=== PATIENT | male | born 2000 | race Caucasian/White ===

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

== ENCOUNTER 2022-04-27 08:40 | Emergency (ER) | payer SELFPAY ==
[2022-04-27] MEDS ORDERED: Sulfamethoxazole/Trimethoprim 800-160 MG Tab PO ONE (10:55)
[2022-04-27] MEDS ORDERED: Acetaminophen 325 MG Tab PO ONE (10:55)
[2022-04-27] MEDS ORDERED: Cephalexin 500 MG Cap PO ONE (10:55)
[2022-04-27] MEDS ORDERED: Lidocaine 1% with EPINEPHrine 1:100,000 10 ML MDV INJECT ONE (10:56)
[2022-04-27] MEDS ORDERED: Diphtheria,Pertussis(Acell),Tetanus Vaccine 0.5 ML Syringe IM ONE (11:43)
[2022-04-27 12:24] VITALS: BP 129/68; PULSE 59
== END 2022-04-27 12:25 | disposition home or self-care (01) ==
LOC: MW.ED 08:40
DX: L02.415 Cutaneous abscess of right lower limb (principal); Z23 Encounter for immunization; F17.210 Nicotine dependence, cigarettes, uncomplicated
CPT/HCPCS: 10060; 90471; 90715; 99283; A9270; J3490

== ENCOUNTER 2024-01-11 04:28 | Emergency (ER) | payer SELFPAY ==
[2024-01-11] MEDS: Albuterol/Ipratropium 3.0-0.5 MG/3 ML Neb Soln NEB ONE (04:49)
[2024-01-11 05:02] VITALS: BP 117/76; PULSE 58
== END 2024-01-11 04:53 | disposition home or self-care (01) ==
LOC: MW.ED 04:28
DX: J45.901 Unspecified asthma with (acute) exacerbation (principal); Z79.899 Other long term (current) drug therapy
CPT/HCPCS: 99283

== ENCOUNTER 2024-11-22 03:38 | Emergency (ER) | payer SELFPAY ==
[2024-11-22 04:00] VITALS: BP 119/93
[2024-11-22] MEDS: methylPREDNISolone Sodium Succinate 40 MG/1 ML SDV IM ONE (04:03)
[2024-11-22 04:45] VITALS: PULSE 76
== END 2024-11-22 04:44 | disposition home or self-care (01) ==
LOC: MW.ED 03:38
DX: J45.21 Mild intermittent asthma with (acute) exacerbation (principal); Z79.51 Long term (current) use of inhaled steroids; Z79.899 Other long term (current) drug therapy
CPT/HCPCS: 93005; 96372; 99284; J2919; J7620; 93010; 99283; A9270-GY